=== PATIENT | female | born 1950 | race Caucasian/White ===

== ENCOUNTER 2016-07-19 07:30 | Day surgery (SDC) | payer OTHER ==
[2016-07-19] MEDS ORDERED: NS 1,000 ML ONE (07:57)
[2016-07-19 09:56] LABS: MANUAL DIFF NEEDED? NO
[2016-07-19 10:00] LABS: BASO% 0.5 % (0.0-0.8); EOS# 0.21 X1000 (0.0-0.7); EOS% 2.5 % (0.0-10.0); HEMATOCRIT 39.6 % (37.0-47.0); HEMOGLOBIN 12.7 g/dL (12.0-16.0); IMM GRAN# 0.02 X1000 (0.0-0.04); IMM GRAN% 0.2 % (0.0-0.5); LYMPH# 1.06 X1000 (1.2-3.4); LYMPH% 12.4 % (20.5-51.1); MCH 30.8 PG (27-31); MCHC 32.1 g/dL (33-37); MCV 95.9 FL (81-99); MONO# 0.87 X1000 (0.11-0.59); MONO% 10.2 % (1.7-9.3); MPV 9.8 FL (7.4-10.4); NEUT% 74.2 % (42.2-75.2); PLT 368 X1000 (130-400); RBC 4.13 XMIL (4.2-5.4)
[2016-07-19] MEDS ORDERED: MYLICON DROPS (DOSE) MISC ONE (10:32)
[2016-07-19 10:42] LABS: INR 1.07; PROTIME 11.4 Seconds (9.2-11.7); PTT 27.9 Seconds (22.0-36.0)
[2016-07-19] MEDS ORDERED: XYLOCAINE-MPF 2% ONE (11:14)
[2016-07-19] MEDS ORDERED: DIPRIVAN 1% 50 ML ONE (12:14)
[2016-07-19 15:34] VITALS: BP 106/66
--- NOTE | 2016-07-25 04:15 | OPERATIVE NOTE ---
PROCEDURE DATE: 07/19/2016 REFERRING PHYSICIAN: Lew James MD PRIMARY CARE PHYSICIAN: Keegan Cannon MD PRIMARY SPECIALIST: Dr. Mora, [facility]. INDICATION FOR PROCEDURE: 1. Dysphagia. 2. 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 3. Recent pulmonary embolus. PROCEDURE PERFORMED: Esophagogastroduodenoscopy with dilation. CONSENT: Informed consent was obtained from the patient prior to the procedure. The risks, benefits, and alternatives were discussed. MEDICATION: The patient received monitored anesthesia care. PERFORMING PHYSICIAN: Stefania Briggs MD. ASSISTANTS: 1. ST Karen. 2. Wei Funes RN. 3. Delta Lawrence CRNA. 4. Pete Stone MD (Anesthesia). COMPLICATIONS: There were no complications. ESTIMATED BLOOD LOSS: Less than 1 mL. SPECIMENS REMOVED: None. FINDINGS: After sedation was achieved, the upper endoscope was inserted to the second portion of the duodenum. The hypopharynx appeared endoscopically normal. On insertion, the upper esophageal sphincter was noted to be hypertensive and required moderate amount of pressure to advance the scope beyond the upper esophageal sphincter. The tubular esophagus appeared endoscopically normal. There was a Schatzki's ring at the GE junction that was mildly obstructed. The GE junction was present at 35 cm from the incisors. There was a hiatal hernia that spanned from 35- 40 cm. In the gastric lumen, there were surgical changes consistent with a sleeve gastrectomy. The mucosa of the stomach revealed nonerosive gastritis and a he few benign-appearing gastric polyps. The suture line appeared intact with no evidence of ulceration. The pylorus appeared endoscopically normal. The first and second portion of the duodenum were mildly inflamed consistent with duodenitis. After the exam was complete, a guidewire was placed into the gastric body. Using Savary dilators, the upper and lower esophageal sphincter was dilated with a 45 and a 48-[place] Savary dilator with 1 pass each. We attempted to pass the 51-[place] dilator but were unable to do so due to the amount of resistance. Second look endoscopy confirmed a small amount of heme at both the upper and lower esophageal sphincter with no evidence of active bleeding or mucosal perforation. These findings were consistent with successful dilation. The lumen was decompressed and the scope was removed without incident. IMPRESSION: 1. 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 2. Schatzki's ring. 3. Hiatal hernia. 4. Surgical changes consistent with a sleeve gastrectomy. 5. Nonerosive gastritis. 6. Benign-appearing gastric polyps. 7. Mild duodenitis. 8. Successful dilation of the esophagus. RECOMMENDATIONS: 1. The patient is currently on anticoagulation therapy due to her recent pulmonary embolus. Please hold her heparin therapy for at least 8 hours. After 72 hours, she may be transitioned to a long-acting medication such as Lovenox. 2. When the heparin is resumed, please resume at the standard rate but do not bolus to minimize the risk of bleeding. 3. Begin a clear liquid diet and advance as tolerated. 4. I anticipate the patient may require repeat endoscopy in the next 8-12 weeks. We will assess her clinical progress and determine the need for repeat esophagogastroduodenoscopy. 5. Continue proton pump inhibitor therapy, which will help to facilitate mucosal healing. 6. If she has a sore throat, I would have a low threshold for adding Carafate suspension 1 gram 4 times a day. 7. Please have the patient return to clinic upon discharge from rehab.
== END 2016-07-19 16:30 ==
LOC: OPS 07:30
PROVIDERS: ATTEND Internal Medicine Gastroenterology
DX: K22.2 Esophageal obstruction (principal); K59.8 Other specified functional intestinal disorders; Z98.84 Bariatric surgery status; K29.70 Gastritis, unspecified, without bleeding; K31.7 Polyp of stomach and duodenum; K29.80 Duodenitis without bleeding; K44.9 Diaphragmatic hernia without obstruction or gangrene; I48.91 Unspecified atrial fibrillation; E78.00 Pure hypercholesterolemia, unspecified; J44.9 Chronic obstructive pulmonary disease, unspecified; I10 Essential (primary) hypertension
CPT/HCPCS: 85025; 85610; 85730; J7030